=== PATIENT | female | born 1980 | race Caucasian/White ===

== ENCOUNTER 2023-04-21 14:23 | Inpatient (IN) | payer MEDICAID, SELFPAY ==
[2023-04-21 14:24] VITALS: BP 129/91; PULSE 132; RESP 20; TEMP 36.6; O2SAT 100; BMI 21.3
[2023-04-21] MEDS: LORazepam 2 MG/ML Syringe 1 MG IV (15:22)
[2023-04-21 15:27] LABS: Amphetamine Urine VISTA NEGATIVE (<1000 ng/mL); Barbiturate Urine VISTA NEGATIVE (< 200 ng/mL); Benzodiazepine Urine VISTA NEGATIVE (< 200 ng/mL); Cocaine Urine VISTA NEGATIVE (< 300 ng/mL); Ecstacy Urine VISTA NEGATIVE (< 500 ng/mL); Methadone Urine VISTA NEGATIVE (< 300 ng/mL); PCP Urine VISTA NEGATIVE (< 25 ng/mL); THC Urine VISTA NEGATIVE (< 50 ng/mL); Vista UDS pH Range 5
[2023-04-21 15:31] LABS: Absolute Lymphocyte Count 0.93 X10^3/uL (0.83-4.51); Absolute Neutrophil Count 5.6 X10^3/uL (2.0-7.7); Basophil# 0.13 X10^3/uL; Basophil% 1.7 % (0-1); Eosinophil# 0.03 X10^3/uL; Eosinophils% 0.4 % (0-5); Hematocrit 32.5 % (37-47); Hemoglobin 10.6 g/dL (12.0-15.0); Lymphocyte # 0.93 X10^3/ul (0.83-4.51); Mean Corp Hgb Conc 32.6 g/dL (32-36); Mean Corpuscular Hgb 32.7 pg (27.0-32.0); Mean Corpuscular Volume 100.3 fL (81-99); Mean Platelet Vol. 9.1 fl (6.2-12.0); Monocyte# 0.95 X10^3/uL; Monocyte% 12.3 % (0-10); NRBC Flagged by Analyzer 0 % (0-5); Neutrophil # 5.63 X10^3/uL (2.7-7.7); Platelet Count 121 K/mm3 (150-450); RBC Distribution Width CV 16.6 % (11.6-14.6); RBC Distribution Width SD 61.1 fl (35.1-43.9); Red Blood Count 3.24 M/mm3 (4.2-5.4); White Blood Count 7.7 K/mm3 (4.4-11.0)
[2023-04-21] MEDS: Ondansetron 4 MG/2 ML Vial IV (15:42)
--- NOTE | 2023-04-21 15:43 | EX.ED.SAOD ---
HPI <MINA Nova - Last Filed: 04/21/23 20:42> History of Present Illness Chief Complaint: ETOH Intox Narrative Narrative: Patient presenting today requesting to detox from alcohol. She reports that she drinks half a liter of vodka daily and has been drinking heavily for the past few months. She reports that she did have a period of sobriety before this but has been drinking on and off for a while. She has never been in a detox program before. She reports that her last drink was this morning. She is starting to go through withdrawal and feels shaky and nauseous. She denies any history of withdrawal seizures. She denies any other substance use. She reports a past medical history of breast cancer in remission. PFS <MINA Nova - Last Filed: 04/21/23 20:42> [facility] Medical History (Updated 05/01/23 @ 00:17 by Background Daemon) Anxiety Hx of breast cancer Irritable bowel Migraines Restless legs Smoker Substance abuse Home Medications buspirone 10 mg tablet 10 mg PO DAILY 04/21/23 [History Last Taken Unknown] gabapentin 300 mg capsule 300 mg PO TID 04/21/23 [History Last Taken Unknown] olanzapine 5 mg tablet 5 mg PO QHS 04/21/23 [History Last Taken Unknown] Allergy/AdvReac Type Severity Reaction Status Date / Time No Known Allergies Allergy Verified 04/21/23 15:38 Surgical History Hx of left mastectomy Social History Smoking Status: Current every day smoker tobacco type: cigarettes ROS <MINA Nova - Last Filed: 04/21/23 20:42> ROS ED Constitutional Constitutional ED: Denies chills or fever(s) Cardiovascular Cardiovascular: Denies chest pain Respiratory/Chest Respiratory/Chest: Denies cough or dyspnea Gastrointestinal Gastrointestinal: Reports nausea; Denies abdominal pain or vomiting Musculoskeletal Musculoskeletal: Denies arthralgias or myalgias Integumentary Denies rash Neurologic Neurologic: Denies weakness EXAM <MINA Nova - Last Filed: 04/21/23 20:42> Physical Exam Const Vital Signs: 04/21/23 14:24 04/21/23 16:00 Temperature 97.8 F Temperature Source Temporal Pulse Rate 132 H 112 H Respiratory Rate 20 H Blood Pressure 129/91 H 122/90 H Blood Pressure Mean 103 100 Pulse Ox 100 Oxygen Delivery Method Room Air Positive well nourished, well developed and no apparent distress General Appearance ED: well developed HEENT Reports normocephalic and head/scalp atraumatic Mouth ED: Yes moist mucous membranes normal Eyes PERRL and EOMs intact bilaterally Neck full ROM and supple Chest Wall inspection of chest normal Resp normal respiratory effort and clear to auscultation bilaterally Cardio regular rate and regular rhythm GI soft to palpation, non-tender and no masses Back/Spine normal ROM and normal to inspection Extremity normal to inspection and full ROM Neuro oriented x3, CN's II-XII intact bilaterally, moves all extremities, no focal motor deficits and no sensory deficits noted Sensorium / Orientation: awake and alert Psych mental status grossly normal and thought process normal Skin no rashes or lesions noted and no wounds <Dr. Vane Zavala DO - Last Filed: 05/03/23 10:58> Physical Exam Const Vital Signs: 04/21/23 14:24 04/21/23 16:00 Temperature 97.8 F Temperature Source Temporal Pulse Rate 132 H 112 H Respiratory Rate 20 H Blood Pressure 129/91 H 122/90 H Blood Pressure Mean 103 100 Pulse Ox 100 Oxygen Delivery Method Room Air MDM <MINA Nova - Last Filed: 04/21/23 20:42> MDM MDM Narrative Medical decision making narrative: Patient presenting today requesting detox from alcohol. She does drink daily, last drink this morning. She is tachycardic here at 132 bpm, she will be given Ativan, Zofran, and phenobarbital. labs will be obtained and I will speak with hospitalist for admission. Patient was given potassium and magnesium replacement. Will be admitted in stable condition and is comfortable with plan. Lab Data Attestation: I reviewed the patient's lab results. Lab results narrative: H&H 10.6 and 32.5, potassium 2.7, BUN 2, magnesium 1.1, bilirubin 1.1, AST 289, alkaline phosphatase 324, toxicology screen negative Labs: Laboratory Results - last 24 hr 04/21/23 04/21/23 14:50 15:15 WBC 7.7 RBC 3.24 L Hgb 10.6 L Hct 32.5 L MCV 100.3 H MCH 32.7 H MCHC 32.6 RDW Std Deviation 61.1 H RDW Coeff of Moni 16.6 H Plt Count 121 L MPV 9.1 Immature Gran % (Auto) 0.600 Neut % (Auto) 73.0 H Lymph % (Auto) 12.0 L [place] % (Auto) 12.3 H Eos % (Auto) 0.4 Baso % (Auto) 1.7 H Absolute Neuts (auto) 5.6 Absolute Lymphs (auto) 0.93 Nucleated RBC % 0 Sodium 138 Potassium 2.7 L* Chloride 97 L Carbon Dioxide 30.0 Anion Gap 11 BUN 2 L Creatinine 0.66 Estim Creat Clear Calc 92.95 Est GFR (MDRD) Af Amer 125 Est GFR (MDRD) Non-Af 103 BUN/Creatinine Ratio 3.0 L Glucose 139 H Calcium 8.6 Magnesium 1.1 L Iron 120 TIBC 289 Iron Saturation 41.5 Ferritin 175 Total Bilirubin 1.10 H AST 289 H ALT 51 Alkaline Phosphatase 324 H Total Protein 6.3 L Albumin 2.8 L Globulin 3.5 Albumin/Globulin Ratio 0.8 L Folate 2.80 L Urine Test Negative Urine Opiates Screen NEGATIVE Urine Methadone Screen NEGATIVE Ur Barbiturates Screen NEGATIVE Ur Phencyclidine Scrn NEGATIVE Ur Amphetamines Screen NEGATIVE MDMA (Ecstasy) Screen NEGATIVE U Benzodiazepines Scrn NEGATIVE Urine Cocaine Screen NEGATIVE U Cannabinoids Screen NEGATIVE Ur Drug Screen Comment Ethyl Alcohol 244.0 <Dr. Vane Zavala, DO - Last Filed: 05/03/23 10:58> [facility] MDM Narrative Medical decision making narrative: Patient presenting today requesting detox from alcohol. She does drink daily, last drink this morning. She is tachycardic here at 132 bpm, she will be given Ativan, Zofran, and phenobarbital. labs will be obtained and I will speak with hospitalist for admission. Patient was given potassium and magnesium replacement. Will be admitted in stable condition and is comfortable with plan. I have personally performed a face to face assessment of the patient and have reviewed the KEV Note. I performed a substantive portion of the visit including all aspects of the following. My raman findings include: History is patient is a 43-year-old female with history of alcohol dependency presenting for request of alcohol detox. Also has a history significant for breast cancer which has been treated. Patient's last drink was earlier today. Vital signs significant for mild tachycardia. Question if this is associate with anxiety versus alcohol withdrawal. Initially given Ativan and phenobarbital in the emergency room. Will be admitted to hospital service for ramp program/alcohol detox. Is also found to have a low magnesium and potassium which replacement started in the emergency room. Other additions or changes: [None] Lab Data Labs: Laboratory Results - last 24 hr 04/21/23 04/21/23 14:50 15:15 WBC 7.7 RBC 3.24 L Hgb 10.6 L Hct 32.5 L MCV 100.3 H MCH 32.7 H MCHC 32.6 RDW Std Deviation 61.1 H RDW Coeff of Moni 16.6 H Plt Count 121 L MPV 9.1 Immature Gran % (Auto) 0.600 Neut % (Auto) 73.0 H Lymph % (Auto) 12.0 L [place] % (Auto) 12.3 H Eos % (Auto) 0.4 Baso % (Auto) 1.7 H Absolute Neuts (auto) 5.6 Absolute Lymphs (auto) 0.93 Nucleated RBC % 0 Sodium 138 Potassium 2.7 L* Chloride 97 L Carbon Dioxide 30.0 Anion Gap 11 BUN 2 L Creatinine 0.66 Estim Creat Clear Calc 92.95 Est GFR (MDRD) Af Amer 125 Est GFR (MDRD) Non-Af 103 BUN/Creatinine Ratio 3.0 L Glucose 139 H Calcium 8.6 Magnesium 1.1 L Iron 120 TIBC 289 Iron Saturation 41.5 Ferritin 175 Total Bilirubin 1.10 H AST 289 H ALT 51 Alkaline Phosphatase 324 H Total Protein 6.3 L Albumin 2.8 L Globulin 3.5 Albumin/Globulin Ratio 0.8 L Folate 2.80 L Urine Test Negative Urine Opiates Screen NEGATIVE Urine Methadone Screen NEGATIVE Ur Barbiturates Screen NEGATIVE Ur Phencyclidine Scrn NEGATIVE Ur Amphetamines Screen NEGATIVE MDMA (Ecstasy) Screen NEGATIVE U Benzodiazepines Scrn NEGATIVE Urine Cocaine Screen NEGATIVE U Cannabinoids Screen NEGATIVE Ur Drug Screen Comment Ethyl Alcohol 244.0 Discharge Plan Dx/Rx/DC Orders Clinical Impression: Desire for detoxification, Transaminitis, ETOH abuse, Anemia, Hypokalemia, Hypomagnesemia Disposition Disposition: Acute Care Hospital [facility] Discharge Date/Time: 04/21/23 17:58
[2023-04-21 16:00] VITALS: BP 122/90; PULSE 112
[2023-04-21] MEDS: Phenobarbital 32.4 MG Tablet 97.2000000000000028 MG PO (16:08)
[2023-04-21 16:28] LABS: ALB/GLOB Ratio 0.8 RATIO (0.9-2.4); AST(SGOT) 289 U/L (15-37); Alanine Aminotransfer ALT/SGPT 51 U/L (13-56); Albumin, Serum 2.8 g/dL (3.2-5.0); Alkaline Phosphatase 324 U/L (45-117); Anion Gap 11 (5-15); BUN 2 mg/dL (7-18); Calcium,Total 8.6 mg/dL (8.5-10.1); Chloride 97 mmol/L (98-107); Creatinine, Serum 0.66 mg/dL (0.55-1.02); EST Glomerular Filtration Rate 103 mL/min (>60); Est Glom Filt Rate - Afr Amer 125 mL/min (>60); Estimated Creatinine Clearance 92.95 ml/min; Globulin 3.5 g/dL (2.2-4.2); Glucose 139 mg/dL (74-106); Potassium 2.7 mmol/L (3.5-5.1); Protein, Total 6.3 g/dL (6.4-8.2); Sodium Level 138 mmol/L (136-145)
[2023-04-21 16:44] LABS: Internal QC Validated? YES +Cl - CLEAR BKGD; Pregnancy, Urine Negative Negative
[2023-04-21 16:48] LABS: Magnesium 1.1 mg/dL (1.6-2.6)
[2023-04-21] MEDS: Potassium Chloride Oral Tablet 20 MEQ 40 MEQ PO (17:00)
--- NOTE | 2023-04-21 17:14 | US_ITS ---
STUDY: ABDOMINAL ULTRASOUND - RIGHT UPPER QUADRANT REASON FOR VISIT: Female, 43 years old Liver disease -- PATIENT BEING ADMITTED FOR DETOX TECHNIQUE: Ultrasound evaluation of the right upper quadrant was performed with real-time and static lynn-scale imaging. TECHNICAL QUALITY: Limited. Examination limited by bowel gas. COMPARISON: None. FINDINGS: Liver: The liver measures 19.7 cm. There is increased echogenicity consistent with fatty infiltration. The bile ducts are within normal limits. There is hepatic color flow. The direction of portal flow is hepatopetal. There is no demonstrated mass lesion. Gallbladder: Normal distended gallbladder. The gallbladder wall measures 2.2 mm. There is a negative sonographic Ling''s sign. There is no pericholecystic fluid. There are no gallstones. Common Bile Duct (C.B.D.): The common bile duct measures 3.8 mm. Pancreas: Suboptimally seen pancreas with obscuration of parts of the head and tail, otherwise normal visualized pancreas. Right Kidney: Normal size of the right kidney. The right kidney measures 11.8 x 3.6 x 3.9 cm. Normal renal cortex. There is no demonstrated renal mass or cyst. There is no right hydronephrosis. 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 US/Abdomen Limited IMPRESSION: Diffuse fatty liver with no gallstones or signs of acute cholecystitis. Remainder of the right upper quadrant ultrasound unremarkable. Electronically Signed: Joelle Love MD at 19:21 EST ,
--- NOTE | 2023-04-21 17:14 | HP.PCM.HOS_ITS ---
HPI - General General Date of Admission: 04/21/23 Date of Service: 04/21/23 Chief Complaint: Alcohol detox HPI Narrative LESLIE SOLIS, is a 43 F who presented to the emergency department at [facility] on 04/21/2023 requesting detox from alcohol. Patient reported on presentation that she drinks about a half a liter of vodka a day and has been drinking heavily for the past few months. She has previously had periods of sobriety but has been drinking on and off for a while. She has never been through detox program before and her last drink was on the morning of presentation. She has started feeling withdrawal symptoms as she is complaining of tremulousness and some nausea. She denies any history of withdrawal seizures and any other substance abuse. She has a history of breast cancer which is currently in remission. She is a current smoker. Vital signs on presentation showed temperature of 97.8, heart rate has been between 112 and 132, blood pressure is 129/91, respiratory to 20 and oxygen saturations are 100% on room air. CBC shows a normal white count with anemia showing hemoglobin of 10.6 that is macrocytic in nature and a thrombocytopenia with a platelet count of 121,000. Baseline is unknown. Her chemistry panel shows marked hypokalemia with potassium of 2.7, normal renal function, significa nt hypomagnesemia with a magnesium level of 1.1, bilirubin of 1.1 and an AST of 289 with a normal ALT. Her urine test was negative. Urine toxicology was unremarkable. Alcohol level is 244. In the emergency department she was given potassium and magnesium replacement and 1 dose of oral phenobarbital and 1 dose of IV Ativan as well as Zofran x 1. She will be admitted to the medical surgical floor for ongoing treatment for alcohol detox. [facility] Medical History Hx of breast cancer Substance abuse Home Medications buspirone 10 mg tablet 10 mg PO DAILY 04/21/23 [History Last Taken Unknown] gabapentin 300 mg capsule 300 mg PO TID 04/21/23 [History Last Taken Unknown] olanzapine 5 mg tablet 5 mg PO QHS 04/21/23 [History Last Taken Unknown] Allergy/AdvReac Type Severity Reaction Status Date / Time No Known Allergies Allergy Verified 04/21/23 15:38 Surgical History Hx of left mastectomy Social History Smoking Status: Current every day smoker tobacco type: cigarettes ROS Constitutional Constitutional: Denies anorexia, change in weight, chills, fatigue, fever(s), malaise, night sweats, weakness or other Eyes Eyes: Denies blurry vision, change in eye color, change in vision, discharge from eye(s), double vision, erythema, eye pain, loss of vision or other ENT HEENT: Denies abnormal hearing, dysphagia, ear pain, epistaxis, headache(s), hearing loss, nasal congestion, nasal discharge, post nasal drip, sinus pressure, sore throat or other Cardiovascular Cardiovascular: Denies chest pain, claudication, dyspnea on exertion, edema, lightheadedness, orthopnea, palpitations, paroxysmal nocturnal dyspnea, rapid heart rate, syncope or other Respiratory/Chest Respiratory/Chest: Denies cough, dyspnea, excessive phlegm production, hemoptysis, productive cough, shortness of breath at rest, shortness of breath with exertion, wheezing or other Gastrointestinal Gastrointestinal: Reports nausea and vomiting; Denies abdominal pain, coffee ground emesis, constipation, diarrhea, dyspepsia, hematemesis, hematochezia, loose stools, melena or other Genitourinary Genitourinary: Denies burning urination, difficulty urinating, dysuria, hematuria, nocturia, urinary frequency, urinary hesitancy, urinary incontinence, urinary urgency or other Musculoskeletal Musculoskeletal: Denies arthralgias, back pain, joint pain, joint stiffness, joint swelling, myalgias, neck pain or other Neurologic Neurologic: Reports paresthesias LUE and LLE Psychiatric Psychiatric: Reports anxiety and depression; Denies homicidal ideation, suicidal ideation or other Endocrine Endocrinology: Denies change in body appearance, cold intolerance, excessive sweating, heat intolerance, polydipsia, polyuria or other Hematologic/Lymphatic Hematologic/Lymphatic: Denies anemia, easy bleeding, easy bruising, lymphadenopathy or other Allergic/Immunologic Allergic/Immunologic: Denies rhinitis, hives, eczemia, asthma or other Vital Signs Vital Signs Vital Signs: 04/21/23 14:24 04/21/23 16:00 Temperature 97.8 F Temperature Source Temporal Pulse Rate 132 H 112 H Respiratory Rate 20 H Blood Pressure 129/91 H 122/90 H Blood Pressure Mean 103 100 Pulse Ox 100 Oxygen Delivery Method Room Air Weight Weight: 56.472 kg Body Mass Index (BMI) 21.3 Physical Exam Const alert, oriented x3, no apparent distress and average body habitus; Negative for healthy appearing or well nourished Constitutional Narrative: Middle-aged, white female, sitting up in bed, appears older than stated age, nontoxic but appears anxious General Appearance: cooperative HEENT normocephalic, head/scalp atraumatic, hearing grossly normal bilaterally and moist oral mucous membranes HEENT Narrative: Mallampati 2, no thrush Eyes PERRL, EOMs intact bilaterally and conjunctivae normal Eyes Narrative: No scleral icterus Neck no lymphadenopathy and supple Neck Narrative: Trachea midline, no thyroid enlargement Resp normal respiratory effort, no retractions, no use of accessory muscles and clear to auscultation bilaterally Resp Narrative: Diminished but clear Auscultation: Negative for crackles, rhonchi or wheezes Cardio regular rhythm, S1 normal heart sound, S2 normal heart sound, no murmurs, no rub, no gallops and no clicks; Negative for regular rate Cardio Narrative: Tachycardic GI soft to palpation and hepatosplenomegaly GI Narrative: Tenderness right upper quadrant, no significant distention, bowel sounds are normal active Extremity no clubbing, cyanosis or edema Extremity Narrative: Pedal pulses are 2+, lymphedema sleeve on left upper extremity Neuro oriented x3, moves all extremities and no focal motor deficits Speech: speech normal Psych Mood & Affect: anxious Results Lab / Micro Data 04/21/23 15:15 04/21/23 15:15 Labs: Laboratory Results - last 24 hr 04/21/23 14:50: Urine Test Negative, Urine Opiates Screen NEGATIVE, Urine Methadone Screen NEGATIVE, Ur Barbiturates Screen NEGATIVE, Ur Phencyclidine Scrn NEGATIVE, Ur Amphetamines Screen NEGATIVE, MDMA (Ecstasy) Screen NEGATIVE, U Benzodiazepines Scrn NEGATIVE, Urine Cocaine Screen NEGATIVE, U Cannabinoids Screen NEGATIVE, Ur Drug Screen Comment 04/21/23 15:15: WBC 7.7, RBC 3.24 L, Hgb 10.6 L, Hct 32.5 L, MCV 100.3 H, MCH 32.7 H, MCHC 32.6, RDW Std Deviation 61.1 H, RDW Coeff of Moni 16.6 H, Plt Count 121 L, MPV 9.1, Immature Gran % (Auto) 0.600, Neut % (Auto) 73.0 H, Lymph % (Auto) 12.0 L, [place] % (Auto) 12.3 H, Eos % (Auto) 0.4, Baso % (Auto) 1.7 H, Absolute Neuts (auto) 5.6, Absolute Lymphs (auto) 0.93, Nucleated RBC % 0, Sodium 138, Potassium 2.7 L*, Chloride 97 L, Carbon Dioxide 30.0, Anion Gap 11, BUN 2 L, Creatinine 0.66, Estim Creat Clear Calc 92.95, Est GFR (MDRD) Af Amer 125, Est GFR (MDRD) Non-Af 103, BUN/Creatinine Ratio 3.0 L, Glucose 139 H, Calcium 8.6, Magnesium 1.1 L, Total Bilirubin 1.10 H, AST 289 H, ALT 51, Alkaline Phosphatase 324 H, Total Protein 6.3 L, Albumin 2.8 L, Globulin 3.5, Albumin/Globulin Ratio 0.8 L, Ethyl Alcohol 244.0 Assessment & Plan Assessment/Plan (1) ETOH abuse: (2) Desire for detoxification: (3) Hypokalemia: (4) Hypomagnesemia: (5) Anemia: (6) Thrombocytopenia: (7) Transaminitis: PLAN: Plan Alcohol abuse with desire for alcohol detoxification -Admit to medical floor -Phenobarbital taper -CIWA protocol with as needed Ativan -Thiamine and folate -Supportive medication for symptom management related to withdraw -1 L IV fluid to run at 100 cc/h -180 consultation--> patient is currently saying that she would like to go for inpatient rehab Hypokalemia -Patient was given 40 mill equivalents p.o. potassium in the emergency d epartment -Magnesium is being replaced -60 mill equivalents to be given on the floor -Repeat lab in the a.m. Hypomagnesemia -4 g magnesium bolus given -Repeat in a.m. Macrocytic anemia -Baseline is unclear as we have no previous data -Repeat CBC in a.m. -Check iron studies -Check thiamine and folate -Check TSH -May be related to liver disease Thrombocytopenia -Baseline is unclear -Current level is 121,000 -Repeat lab in a.m. -Check abdominal ultrasound for signs of cirrhosis/splenomegaly -May also be related to marrow toxicity from alcohol he use Transaminitis -Mild -Fits alcohol pattern -Repeat in a.m. History of anxiety -Continue home BuSpar -Continue home gabapentin History of breast cancer with complicating lymphedema -Status postmastectomy on left, chemotherapy and radiation -Currently in remission -Continue outpatient follow-up Bilateral lower extremity tingling -B12 and folate are pending -May be related to recent chemotherapy as well -Would recommend outpatient follow-up with persistent and has normal labs Tobacco abuse -Recommend cessation -Patient smokes about a half a pack of cigarettes a day -Nicotine patch available DVT prophylaxis -With history of breast cancer will start Lovenox 40 daily CODE STATUS Full code Charges/Coding Visit Charges Inpatient E&M: 19091 Init Hosp L2
[2023-04-21] MEDS: Magnesium Sulfate 4gm/100mL 4 GM/100 ML IV.SOLN. IV (17:26)
[2023-04-21 17:57] VITALS: BP 115/89; PULSE 76; RESP 14; O2SAT 98
[2023-04-21 17:59] LABS: Ferritin 175 ng/mL (8-252); Iron 120 ug/dL (50-170); Iron Binding Capacity,Total 289 ug/dL (250-450); PERCENT IRON SATURATION 41.5 % (15.0-55.0)
[2023-04-21 18:50] VITALS: BMI 21.4
[2023-04-21] MEDS: Ondansetron 8 MG Tablet PO (19:01)
[2023-04-21] MEDS: 0.9% Normal Saline (1000mL) 1,000 ML 100 ML IV (19:03)
[2023-04-21] MEDS: Phenobarbital 32.4 MG Tablet 64.7999999999999972 MG PO ×2 (19:05→23:09)
[2023-04-21] MEDS: Potassium Chloride Oral Tablet 20 MEQ 60 MEQ PO (19:05)
[2023-04-21 19:09] VITALS: BP 117/85; PULSE 118; RESP 16; TEMP 37.2; O2SAT 98
[2023-04-21] MEDS: OLANZapine 2.5 MG Tablet 5 MG PO (20:15)
[2023-04-21] MEDS: proCHLORPERazine 10 MG/2 ML Vial 5 MG IV (20:26)
[2023-04-21] MEDS: 0.9% Saline Lock 10 ML Syringe IV (20:27)
[2023-04-21] MEDS: Dicyclomine 10 MG Capsule 20 MG PO (20:27)
[2023-04-21] MEDS: hydrOXYzine PAM 25 MG Capsule 50 MG PO (20:27)
[2023-04-21] MEDS: Gabapentin 300 MG Capsule PO (20:27)
[2023-04-21 21:01] VITALS: BP 116/76; PULSE 112; RESP 16; TEMP 36.9; O2SAT 99
[2023-04-21] MEDS: traZODone 100 MG Tablet PO (23:09)
[2023-04-22] VITALS (9 sets, daily range): BP systolic 99–120; BP diastolic 64–73; PULSE 100–130; RESP 14–20; TEMP 36.8–37.5; O2SAT 96–114
[2023-04-22] MEDS: hydrOXYzine PAM 25 MG Capsule 50 MG PO (02:52)
[2023-04-22] MEDS: Phenobarbital 32.4 MG Tablet 64.7999999999999972 MG PO ×6 (02:52→23:02)
[2023-04-22] MEDS: Ondansetron 8 MG Tablet PO (02:52)
[2023-04-22] MEDS: Acetaminophen 325 MG Tablet 650 MG PO ×2 (02:56→10:52)
[2023-04-22 05:53] LABS: Absolute Lymphocyte Count 0.82 X10^3/uL (0.83-4.51); Basophil# 0.06 X10^3/uL; Basophil% 1.4 % (0-1); Eosinophil# 0.04 X10^3/uL; Eosinophils% 0.9 % (0-5); Hematocrit 27.1 % (37-47); Lymphocyte # 0.82 X10^3/ul (0.83-4.51); Lymphocyte % 18.8 % (19-41); Mean Corp Hgb Conc 33.2 g/dL (32-36); Mean Corpuscular Hgb 33.2 pg (27.0-32.0); Mean Platelet Vol. 9.5 fl (6.2-12.0); Monocyte# 0.46 X10^3/uL; Monocyte% 10.5 % (0-10); NRBC Flagged by Analyzer 0 % (0-5); Neutrophil # 2.97 X10^3/uL (2.7-7.7); Neutrophil % 67.9 % (47-70); POSITIVE COUNT YES; Platelet Count 72 K/mm3 (150-450); RBC Distribution Width CV 16.9 % (11.6-14.6); RBC Distribution Width SD 61.8 fl (35.1-43.9); Red Blood Count 2.71 M/mm3 (4.2-5.4); White Blood Count 4.4 K/mm3 (4.4-11.0)
[2023-04-22 06:04] LABS: Differential Indicated SCAN CRITERIA MET
[2023-04-22] MEDS: Gabapentin 300 MG Capsule PO ×3 (06:13→23:02)
[2023-04-22 07:21] LABS: ALB/GLOB Ratio 0.8 RATIO (0.9-2.4); AST(SGOT) 351 U/L (15-37); Alanine Aminotransfer ALT/SGPT 51 U/L (13-56); Albumin, Serum 2.4 g/dL (3.2-5.0); Alkaline Phosphatase 294 U/L (45-117); Anion Gap 7 (5-15); BUN 2 mg/dL (7-18); BUN/Creat Ratio 3.3 RATIO (10-20); Calcium,Total 7.3 mg/dL (8.5-10.1); Chloride 105 mmol/L (98-107); EST Glomerular Filtration Rate 114 mL/min (>60); Est Glom Filt Rate - Afr Amer 138 mL/min (>60); Estimated Creatinine Clearance 102.25 ml/min; Globulin 3.1 g/dL (2.2-4.2); Glucose 61 mg/dL (74-106); Phosphorus 2.3 mg/dL (2.5-4.9); Platelet Estimate MOD DEC (ADEQ); Potassium 4.3 mmol/L (3.5-5.1); Protein, Total 5.5 g/dL (6.4-8.2); Sodium Level 137 mmol/L (136-145); Thyroid Stim Hormone (TSH) 2.17 uIU/mL (0.358-3.74)
--- NOTE | 2023-04-22 08:25 | PN.HOSP_ITS ---
Reason for Visit Reason for Visit: Diagnoses Anemia, unspecified (04/21/23) Thrombocytopenia, unspecified (04/21/23) Hypomagnesemia (04/21/23) Hypokalemia (04/21/23) Alcohol abuse, uncomplicated (04/21/23) Elevation of levels of liver transaminase levels (04/21/23) Subjective Subjective Patient is a 43-year-old lady with history of chronic alcohol dependence admitted for medical stabilization Objective Data Objective Data Vital Signs: Vital Signs Temp Pulse Resp BP Pulse Ox O2 Del Method 99.2 F H 112 H 16 120/67 97 Room Air 04/22/23 06:10 04/22/23 06:10 04/22/23 03:06 04/22/23 03:06 04/22/23 08:21 04/22/23 08:21 Oxygen Delivery Method Room Air Weight: 56.699 kg Body Mass Index (BMI) 21.4 Intake & Output: Intake and Output for Last 24 Hours 04/20/23 04/21/23 04/22/23 23:59 23:59 23:59 Intake Total 100.00 / 100.00 1000 / 1000 Balance 100.00 / 100.00 1000 / 1000 Lab / Micro Data 04/22/23 05:33 04/22/23 05:33 Labs: Laboratory Results - last 24 hr 04/21/23 14:50: Urine Test Negative, Urine Opiates Screen NEGATIVE, Urine Methadone Screen NEGATIVE, Ur Barbiturates Screen NEGATIVE, Ur Phencyclidine Scrn NEGATIVE, Ur Amphetamines Screen NEGATIVE, MDMA (Ecstasy) Screen NEGATIVE, U Benzodiazepines Scrn NEGATIVE, Urine Cocaine Screen NEGATIVE, U Cannabinoids Screen NEGATIVE, Ur Drug Screen Comment 04/21/23 15:15: WBC 7.7, RBC 3.24 L, Hgb 10.6 L, Hct 32.5 L, MCV 100.3 H, MCH 32.7 H, MCHC 32.6, RDW Std Deviation 61.1 H, RDW Coeff of Moni 16.6 H, Plt Count 121 L, MPV 9.1, Immature Gran % (Auto) 0.600, Neut % (Auto) 73.0 H, Lymph % (Auto) 12.0 L, [place] % (Auto) 12.3 H, Eos % (Auto) 0.4, Baso % (Auto) 1.7 H, Absolute Neuts (auto) 5.6, Absolute Lymphs (auto) 0.93, Nucleated RBC % 0, Sodium 138, Potassium 2.7 L*, Chloride 97 L, Carbon Dioxide 30.0, Anion Gap 11, BUN 2 L, Creatinine 0.66, Estim Creat Clear Calc 92.95, Est GFR (MDRD) Af Amer 125, Est GFR (MDRD) Non-Af 103, BUN/Creatinine Ratio 3.0 L, Glucose 139 H, Calcium 8.6, Magnesium 1.1 L, Iron 120, TIBC 289, Iron Saturation 41.5, Ferritin 175, Total Bilirubin 1.10 H, AST 289 H, ALT 51, Alkaline Phosphatase 324 H, Total Protein 6.3 L, Albumin 2.8 L, Globulin 3.5, Albumin/Globulin Ratio 0.8 L, Folate 2.80 L, Ethyl Alcohol 244.0 04/22/23 05:33: WBC 4.4, RBC 2.71 L, Hgb 9.0 L, Hct 27.1 L, MCV 100.0 H, MCH 33.2 H, MCHC 33.2, RDW Std Deviation 61.8 H, RDW Coeff of Moni 16.9 H, Plt Count 72 L, MPV 9.5, Immature Gran % (Auto) 0.500, Neut % (Auto) 67.9, Lymph % (Auto) 18.8 L, [place] % (Auto) 10.5 H, Eos % (Auto) 0.9, Baso % (Auto) 1.4 H, Absolute Neuts (auto) 3.0, Absolute Lymphs (auto) 0.82 L, Nucleated RBC % 0, Platelet Estimate MOD DEC, Sodium 137, Potassium 4.3, Chloride 105, Carbon Dioxide 25.0, Anion Gap 7, BUN 2 L, Creatinine 0.60, Estim Creat Clear Calc 102.25, Est GFR (MDRD) Af Amer 138, Est GFR (MDRD) Non-Af 114, BUN/Creatinine Ratio 3.3 L, Glucose 61 L, Calcium 7.3 L, Phosphorus 2.3 L, Magnesium 2.0, Total Bilirubin 2.80 H, AST 351 H, ALT 51, Alkaline Phosphatase 294 H, Total Protein 5.5 L, Albumin 2.4 L, Globulin 3.1, Albumin/Globulin Ratio 0.8 L, TSH 2.17 Radiography Diagnostic Testing: Radiology Impression Abdomen Ultrasound 04/21/23 17:14 IMPRESSION: Diffuse fatty liver with no gallstones or signs of acute cholecystitis. Remainder of the right upper quadrant ultrasound unremarkable. Electronically Signed: Joelle Love MD at 19:21 EST Reading Location ID and State: [address] [place] [address] , Service support , Physical Exam Narrative GENERAL: cooperative HEENT: Atraumatic; normocephalic EYES; Anicteric, Normal Conjunctiva NECK; supple, normal thyroid, RESPIRATORY: Diminished to auscultation CARDIOVASCULAR: Regular S1 S2, GI: soft, normoactive bowel sounds, : No Renal angle tenderness; EXTREMITIES: No edema, no clubbing, MUSCULOSKELETAL: no muscle wasting NEURO: Awake; no lateralizing signs. SKIN: No Rash PSYCH; Flat affect Assessment & Plan Assessment/Plan (1) ETOH abuse: PLAN: Plan Patient is a 43-year-old lady with history of chronic alcohol dependence admitted for medical stabilization 1. Chronic alcohol dependence ? Patient admitted for medical stabilization using phenobarb taper 2. Hypokalemia ? Corrected per protocol repeat labs ordered for monitoring 3. Hypomagnesemia ? Corrected per protocol repeat labs ordered for monitoring 4. Anemia With microcytosis suspected to be secondary to chronic alcohol use monitoring with H&H 5. Thrombocytopenia ? Secondary to chronic alcohol use monitoring 6. Acute transaminitis ? Secondary to chronic alcohol use patient being monitored with daily LFTs if co ntinues to rise will consult GI 7. History of breast CA ? Status post left mastectomy with subsequent chemo and radiation currently remains in remission 8. Anxiety disorder ? Patient is on BuSpar 9. Tobacco dependence - Counseled on cessation, offered nicotine patch for tobacco cravings 10. DVT prophylaxis ? SC Lovenox Time spent in the patient's overall evaluation,decision-making process, review of diagnostic data, adjustment of management, discussion with other providers, nursing nursing and ancillary staff involved in patient's care documentation, 50 Minutes Charges/Coding Visit Charges Inpatient E&M: 74673 Subs Hosp L3
[2023-04-22] MEDS: busPIRone 5 MG Tablet 10 MG PO (08:36)
[2023-04-22] MEDS: Thiamine Hydrochloride 100 MG Tablet PO (08:36)
[2023-04-22] MEDS: Folic Acid 1 MG Tablet PO (08:36)
[2023-04-22 09:54] LABS: Vitamin B12 918 pg/mL (211-911)
--- NOTE | 2023-04-22 11:43 | ADDICTION ---
This remote mortgage underwriter met with PT to conduct ASAM, MSE, DUDIT, AUDIT assessments and to plan for d/c. All assessments completed. PT declined d/c planning noting that she will follow up if she feels that she needs it. This remote mortgage underwriter encouraged PT to schedule an appointment but PT declined again.
--- NOTE | 2023-04-22 14:04 | NURSING ---
ordered roseline for pt.
[2023-04-22] MEDS: OLANZapine 2.5 MG Tablet 5 MG PO (23:02)
[2023-04-23 02:00] VITALS: BP 100/70; PULSE 110; RESP 18; TEMP 36.8; O2SAT 97
[2023-04-23] MEDS: Phenobarbital 32.4 MG Tablet 64.7999999999999972 MG PO ×4 (02:38→14:32)
[2023-04-23] MEDS: Gabapentin 300 MG Capsule PO ×2 (06:37→14:32)
[2023-04-23] MEDS: Thiamine Hydrochloride 100 MG Tablet PO (06:37)
[2023-04-23] MEDS: Folic Acid 1 MG Tablet PO (06:37)
--- NOTE | 2023-04-23 07:43 | PN.HOSP_ITS ---
Reason for Visit Reason for Visit: Diagnoses Anemia, unspecified (04/21/23) Thrombocytopenia, unspecified (04/21/23) Hypomagnesemia (04/21/23) Hypokalemia (04/21/23) Alcohol abuse, uncomplicated (04/21/23) Elevation of levels of liver transaminase levels (04/21/23) Subjective Subjective Patient seen had a relatively uneventful night. Diagnostic data including LFTs reviewed trending in the right direction Objective Data Objective Data Vital Signs: Vital Signs Temp Pulse Resp BP Pulse Ox O2 Del Method 98.2 F 110 H 18 100/70 97 Room Air 04/23/23 02:00 04/23/23 02:00 04/23/23 02:00 04/23/23 02:00 04/23/23 02:00 04/23/23 02:00 Oxygen Delivery Method Room Air Weight: 56.699 kg Body Mass Index (BMI) 21.4 Intake & Output: Intake and Output for Last 24 Hours 04/21/23 04/22/23 04/23/23 23:59 23:59 23:59 Intake Total 100.00 / 100.00 1000 / 1000 Balance 100.00 / 100.00 1000 / 1000 Lab / Micro Data 04/23/23 07:44 04/23/23 07:44 Labs: Laboratory Results - last 24 hr 04/21/23 14:50: Vitamin B12 918 H Physical Exam Narrative GENERAL: cooperative HEENT: Atraumatic; normocephalic EYES; Anicteric, Normal Conjunctiva NECK; supple, normal thyroid, RESPIRATORY: Diminished to auscultation CARDIOVASCULAR: Regular S1 S2, GI: soft, normoactive bowel sounds, : No Renal angle tenderness; EXTREMITIES: No edema, no clubbing, MUSCULOSKELETAL: no muscle wasting NEURO: Awake; no lateralizing signs. SKIN: No Rash PSYCH; Flat affect Assessment & Plan Assessment/Plan (1) ETOH abuse: PLAN: Plan Patient is a 43-year-old lady with history of chronic alcohol dependence admitted for medical stabilization 1. Chronic alcohol dependence ? Patient admitted for medical stabilization using phenobarb taper ? 04/23/2023 patient has tolerated taper well so far 2. Hypokalemia ? Corrected per protocol repeat labs ordered for monitoring 3. Hypomagnesemia ? Corrected per protocol repeat labs ordered for monitoring 4. Anemia With microcytosis suspected to be secondary to chronic alcohol use monitoring with H&H 5. Thrombocytopenia ? Secondary to chronic alcohol use monitoring 6. Acute transaminitis ? Secondary to chronic alcohol use patient being monitored with daily LFTs if continues to rise will consult GI ? 04/23/2023 patient transaminitis improving 7. History of breast CA ? Status post left mastectomy with subsequent chemo and radiation currently rem ains in remission 8. Anxiety disorder ? Patient is on BuSpar 9. Tobacco dependence - Counseled on cessation, offered nicotine patch for tobacco cravings 10. DVT prophylaxis ? SC Lovenox 11. Hypophosphatemia ? Corrected per protocol Time spent in the patient's overall evaluation,decision-making process, review of diagnostic data, adjustment of management, discussion with other providers, nursing nursing and ancillary staff involved in patient's care documentation, 35 Minutes Charges/Coding Visit Charges Inpatient E&M: 55383 Subs Hosp L2
[2023-04-23 08:08] LABS: Absolute Lymphocyte Count 0.96 X10^3/uL (0.83-4.51); Absolute Neutrophil Count 4.2 X10^3/uL (2.0-7.7); Basophil# 0.06 X10^3/uL; Eosinophil# 0.27 X10^3/uL; Eosinophils% 4.6 % (0-5); Hematocrit 30.7 % (37-47); Hemoglobin 10.3 g/dL (12.0-15.0); Lymphocyte # 0.96 X10^3/ul (0.83-4.51); Lymphocyte % 16.3 % (19-41); Mean Corp Hgb Conc 33.6 g/dL (32-36); Mean Corpuscular Hgb 34.2 pg (27.0-32.0); Mean Platelet Vol. 10.6 fl (6.2-12.0); Monocyte% 6.8 % (0-10); NRBC Flagged by Analyzer 0 % (0-5); Neutrophil # 4.16 X10^3/uL (2.7-7.7); Neutrophil % 70.8 % (47-70); POSITIVE COUNT YES; Platelet Count 93 K/mm3 (150-450); RBC Distribution Width CV 17.1 % (11.6-14.6); RBC Distribution Width SD 63.5 fl (35.1-43.9); Red Blood Count 3.01 M/mm3 (4.2-5.4); White Blood Count 5.9 K/mm3 (4.4-11.0)
[2023-04-23 08:36] LABS: AST(SGOT) 198 U/L (15-37); Alanine Aminotransfer ALT/SGPT 50 U/L (13-56); Albumin, Serum 2.4 g/dL (3.2-5.0); Alkaline Phosphatase 266 U/L (45-117); Anion Gap 8 (5-15); BUN 3 mg/dL (7-18); BUN/Creat Ratio 4.2 RATIO (10-20); Bilirubin, Direct 2.09 mg/dL (0.00-0.30); Calcium,Total 8.2 mg/dL (8.5-10.1); Chloride 102 mmol/L (98-107); Creatinine, Serum 0.72 mg/dL (0.55-1.02); EST Glomerular Filtration Rate 94 mL/min (>60); Est Glom Filt Rate - Afr Amer 113 mL/min (>60); Glucose 116 mg/dL (74-106); Magnesium 1.9 mg/dL (1.6-2.6); Phosphorus 1.7 mg/dL (2.5-4.9); Protein, Total 5.4 g/dL (6.4-8.2); Sodium Level 135 mmol/L (136-145)
[2023-04-23 09:00] VITALS: O2SAT 96
[2023-04-23 10:03] VITALS: BP 108/77; PULSE 123; RESP 17; TEMP 37.2; O2SAT 98
[2023-04-23] MEDS: busPIRone 5 MG Tablet 10 MG PO (10:08)
[2023-04-23] MEDS: Na Biphos/Potassium Phosphate PACKET 1 PACKET PO (14:32)
[2023-04-23] MEDS: Acetaminophen 325 MG Tablet 650 MG PO (14:37)
[2023-04-23 16:00] VITALS: BP 106/82; PULSE 117; RESP 18; TEMP 36.6; O2SAT 98
--- NOTE | 2023-04-23 16:28 | DS.PCM_ITS ---
Providers Date of Admission: 04/21/23 Date of Discharge: 04/23/23 Primary Care Physician: Thu Primary Care Phys Reason For Visit: ETOH DETOX Diagnosis Discharge Diagnosis (1) ETOH abuse: Status: Acute Code(s): F10.10 - Alcohol abuse, uncomplicated Plan Patient is a 43-year-old lady with history of chronic alcohol dependence admitted for medical stabilization 1. Chronic alcohol dependence ? Patient admitted for medical stabilization using phenobarb taper ? 04/23/2023 patient has tolerated taper well so far -Patient requested to be discharged. She had apparently been assessed by [facility] she was asked to schedule an appointment which she did refuse 2. Hypokalemia ? Corrected per protocol repeat labs ordered for monitoring 3. Hypomagnesemia ? Corrected per protocol repeat labs ordered for monitoring 4. Anemia With microcytosis suspected to be secondary to chronic alcohol use monitoring with H&H 5. Thrombocytopenia ? Secondary to chronic alcohol use monitoring 6. Acute transaminitis ? Secondary to chronic alcohol use patient being monitored with daily LFTs if continues to rise will consult GI ? 04/23/2023 patient transaminitis improving 7. History of breast CA ? Status post left mastectomy with subsequent chemo and radiation currently remains in remission 8. Anxiety disorder ? Patient is on BuSpar 9. Tobacco dependence - Counseled on cessation, offered nicotine patch for tobacco cravings 10. DVT prophylaxis ? SC Lovenox 11. Hypophosphatemia ? Corrected per protocol Time spent in the patient's overall evaluation,decision-making process, review o f diagnostic data, adjustment of management, discussion with other providers, nursing nursing and ancillary staff involved in patient's care documentation, 35 Minutes Medications at Discharge Home Medications buspirone 10 mg tablet 10 mg PO DAILY 04/21/23 gabapentin 300 mg capsule 300 mg PO TID 04/21/23 olanzapine 5 mg tablet 5 mg PO QHS 04/21/23 Hospital Course Summary of Care Provided Minutes Spent on Discharge: 35 Physical Exam Narrative GENERAL: cooperative HEENT: Atraumatic; normocephalic EYES; Anicteric, Normal Conjunctiva NECK; supple, normal thyroid, RESPIRATORY: Diminished to auscultation CARDIOVASCULAR: Regular S1 S2, GI: soft, normoactive bowel sounds, : No Renal angle tenderness; EXTREMITIES: No edema, no clubbing, MUSCULOSKELETAL: no muscle wasting NEURO: Awake; no lateralizing signs. SKIN: No Rash PSYCH; Flat affect Weight / BMI Weight Weight: 56.699 kg Body Mass Index (BMI) 21.4 ABG / Lab / Microbiology Data 04/23/23 07:44 04/23/23 07:44 Laboratory: Laboratory Results - last 24 hr 04/23/23 07:44: WBC 5.9, RBC 3.01 L, Hgb 10.3 L, Hct 30.7 L, MCV 102.0 H, MCH 34.2 H, MCHC 33.6, RDW Std Deviation 63.5 H, RDW Coeff of Moni 17.1 H, Plt Count 93 L, MPV 10.6, Immature Gran % (Auto) 0.500, Neut % (Auto) 70.8 H, Lymph % (Auto) 16.3 L, [place] % (Auto) 6.8, Eos % (Auto) 4.6, Baso % (Auto) 1.0, Absolute Neuts (auto) 4.2, Absolute Lymphs (auto) 0.96, Nucleated RBC % 0, Sodium 135 L, Potassium 3.0 L, Chloride 102, Carbon Dioxide 25.0, Anion Gap 8, BUN 3 L, Creatinine 0.72, Estim Creat Clear Calc 85.20, Est GFR (MDRD) Af Amer 113, Est GFR (MDRD) Non-Af 94, BUN/Creatinine Ratio 4.2 L, Glucose 116 H, Calcium 8.2 L, Phosphorus 1.7 L, Magnesium 1.9, Total Bilirubin 2.70 H, Direct Bilirubin 2.09 H , AST 198 H, ALT 50, Alkaline Phosphatase 266 H, Total Protein 5.4 L, Albumin 2.4 L, Globulin 3.0 D/C Instructions Discharge Diet: No restrictions Discharge Activity: Return to Normal Activity and May Not Drive (Whiles intoxicated with alcohol) Call your doctor if you observe: Fever of 101 or Higher, Shortness of breath, Fainting spells and Chest pain Meaningful Use Info Meaningful Use Diagnoses (Choose all that apply): None applicable Discharge Plan Admission Admit Date/Time: 04/21/23 17:06 Attending Provider: Skinny Zavala Primary Care Provider: Care Physician,No Primary Consulting Providers: Isabel Dowd Discharge Orders/Prescriptions Prescriptions: Continued buspirone 10 mg tablet 10 mg PO DAILY gabapentin 300 mg capsule 300 mg PO TID Patient Comments: take 1 capsule by mouth every morning take 1 capsule AT LUNCH and take 2 capsules at bedtime olanzapine 5 mg tablet 5 mg PO QHS Referrals / Follow Up: Care Physician,No Primary [Primary Care Provider] - Within 2 Weeks Disposition Disposition (needs filled in before D/C Order can be placed): Home, Self Care Charges/Coding Visit Charges Inpatient E&M: 83313 Disch Hosp >30min
[2023-04-23] MEDS: 0.9% Saline Lock 10 ML Syringe IV (16:48)
[2023-04-23 19:21] VITALS: BP 110/79; PULSE 111; RESP 18; TEMP 36.4; O2SAT 100
--- NOTE | 2023-04-25 10:46 | CM.ED ---
Social Work Patient left voicemail for SW. Returned call and patient is requesting resources for counseling. SW provided information and emailed resources for patient. Keya Cowan ASSISTANT PRODUCER, [employer]
== END 2023-04-23 19:30 | disposition home or self-care (01) | DRG 775 ==
LOC: ED 15:47 → MS3 17:33
PROVIDERS: Physician Assistant; Admitting Provider Internal Medicine; Emergency Provider Emergency Medicine; Visit Provider Internal Medicine
DX: F10.20 Alcohol dependence, uncomplicated (principal); D69.6 Thrombocytopenia, unspecified; D53.9 Nutritional anemia, unspecified; E87.6 Hypokalemia; E83.42 Hypomagnesemia; F17.210 Nicotine dependence, cigarettes, uncomplicated; F41.9 Anxiety disorder, unspecified; E83.39 Other disorders of phosphorus metabolism; R74.01 Elevation of levels of liver transaminase levels; Z90.12 Acquired absence of left breast and nipple; Z79.899 Other long term (current) drug therapy; Z85.3 Personal history of malignant neoplasm of breast; Y90.8 Blood alcohol level of 240 mg/100 ml or more
CPT/HCPCS: 36415; 76705; 80048; 80053; 80076; 80307; 80320; 81025; 82607; 82728; 82746; 83540; 83550; 83735; 84100; 84443; 85025; 94668; 99283; J7030; A4216; G0480; J2405